=== PATIENT | female | born 1965 | race Caucasian/White ===

== ENCOUNTER 2017-07-28 14:37 | Emergency (ER) | payer OTHER ==
[~2017-07-28 14:37] MED LIST: ANTIBIOTIC O500 U/GM T; Motrin,Rufen800 MG PO; ULTRAM50 MG PO
[2017-07-28 15:06] LABS: BASO % 0.4 % (0.0-1.0); EOS # 0.1 10*3/uL (0.0-0.4); EOS % 1.8 % (1.0-4.0); HEMATOCRIT 35.3 % (37.0-47.0); HEMOGLOBIN 10.6 g/dl (12.0-16.0); LYMPH # 1.5 10*3/uL (1.3-4.4); LYMPH % 19.2 % (27.0-41.0); MEAN CELL VOLUME 79.1 fl (81.0-99.0); MEAN CORPUSCULAR HGB 23.8 pg (27.0-31.0); MEAN PLATELET VOLUME 9.3 fl (9.6-12.3); MONO # 0.3 10*3/uL (0.1-1.0); MONO % 4.3 % (3.0-9.0); NEUT # 5.7 10*3/uL (2.3-7.9); PLATELET COUNT AUTOMATED 293 10*3/uL (130-400); RED BLOOD COUNT 4.46 10*6/uL (4.10-5.10); RED CELL DISTRI WIDTH 15.1 % (0-14.5); WHITE BLOOD COUNT 7.7 10*3/uL (4.8-10.8)
[2017-07-28 15:21] LABS: BUN 10 mg/dl (7-24); CHLORIDE 101 mmol/L (98-107); CREATININE 0.83 mg/dL (0.55-1.02); SODIUM 137 mmol/L (136-145)
[2017-07-28] MEDS ORDERED: CEPHALEXIN500 M1 PO (15:39)
[2017-07-28] MEDS ORDERED: SEPTDS PO (15:39)
== END 2017-07-28 14:58 | disposition home or self-care (01) ==
LOC: ED 14:37
PROVIDERS: Physician Assistant
DX: L03.317 Cellulitis of buttock (principal); L02.31 Cutaneous abscess of buttock

== ENCOUNTER 2018-04-19 18:19 | Emergency (ER) | payer OTHER ==
[~2018-04-19] VITALS: Ht 172.7 cm; Wt 108.9 kg
[~2018-04-19 18:19] MED LIST changes: +CEPHALEXIN500 M1 PO; +SEPTDS PO
[2018-04-19] MEDS ORDERED: NAPROSYN500 MG PO (19:36)
[2018-04-19] MEDS ORDERED: CYCLOBENZAPRINE10 MG PO (19:36)
[2018-04-19] MEDS ORDERED: PREDNISONE50 MG PO (19:36)
== END 2018-04-19 19:38 | disposition home or self-care (01) ==
LOC: ED 18:19
DX: M54.5 Low back pain (principal); M62.830 Muscle spasm of back

== ENCOUNTER 2019-03-16 07:13 | Emergency (ER) | payer OTHER ==
[~2019-03-16] VITALS: Ht 172.7 cm; Wt 106.6 kg
[~2019-03-16 07:13] MED LIST changes: +CYCLOBENZAPRINE10 MG PO; +NAPROSYN500 MG PO; +PREDNISONE50 MG PO
[2019-03-16] MEDS ORDERED: CLINDAMYCIN HC300 MG PO (08:32)
== END 2019-03-16 08:36 | disposition home or self-care (01) ==
LOC: ED 07:13
DX: K08.89 Other specified disorders of teeth and supporting structures (principal); R53.1 Weakness; R25.1 Tremor, unspecified; R50.9 Fever, unspecified; Z79.899 Other long term (current) drug therapy; Z87.891 Personal history of nicotine dependence

== ENCOUNTER 2021-11-03 09:51 | Emergency (ER) | payer OTHER ==
[~2021-11-03] VITALS: Ht 172.7 cm; Wt 68.0 kg
[~2021-11-03 09:51] MED LIST changes: +CLINDAMYCIN HC300 MG PO
[2021-11-03 10:35] LABS: BASO % 0.4 % (0.0-1.0); EOS % 0.9 % (1.0-4.0); LYMPH # 1.4 10*3/uL (1.3-4.4); LYMPH % 28.8 % (27.0-41.0); MEAN CELL VOLUME 90.1 fl (81.0-99.0); MEAN CORPUSCULAR HGB CONC 33.3 g/dl (33.0-37.0); MEAN PLATELET VOLUME 9.2 fl (9.6-12.3); MONO # 0.3 10*3/uL (0.1-1.0); MONO % 5.8 % (3.0-9.0); NEUT % 64.1 % (47.0-73.0); PLATELET COUNT AUTOMATED 251 10*3/uL (130-400); RED BLOOD COUNT 4.77 10*6/uL (4.10-5.10); RED CELL DISTRI WIDTH 12.9 % (0-14.5); WHITE BLOOD COUNT 4.7 10*3/uL (4.8-10.8)
[2021-11-03 10:46] LABS: ACT PARTIAL THROMBO TIME 27.5 SECONDS (20.0-32.1)
[2021-11-03 10:55] LABS: ALKALINE PHOSPHATASE 102 U/L (45-117); BUN 14 mg/dl (7-24); CHLORIDE 106 mmol/L (98-107); CREATININE 0.68 mg/dL (0.55-1.02); LIPASE 119 U/L (73-393); POTASSIUM 3.9 mmol/L (3.5-5.1); SGOT/AST 27 IU/L (3-35); SGPT/ALT 43 U/L (12-78); SODIUM 138 mmol/L (136-145); TOTAL PROTEIN 7.6 gm/dL (6.4-8.2)
[2021-11-03] MEDS ORDERED: ZOFRAN4 MG PO (14:09)
[2021-11-03] MEDS ORDERED: MECLIZINE HCL25 M2 PO (14:09)
== END 2021-11-03 14:20 | disposition home or self-care (01) ==
LOC: ED 09:51
PROVIDERS: Emergency Medicine
DX: R42 Dizziness and giddiness (principal)

== ENCOUNTER → 2021-11-17 | Outpatient (CLI) | payer OTHER ==
[~2021-11-17] MED LIST changes: +MECLIZINE HCL25 M2 PO; +ZOFRAN4 MG PO
[2021-11-17 16:08] LABS: BILIRUBIN Negative (Negative); BLOOD Negative (Negative); CLARITY Clear (Clear); COLOR Yellow (Yellow); GLUCOSE Negative (Negative); KETONE Negative (Negative); LEUKO ESTERASE Trace (Negative); NITRITE Negative (Negative); PH 6.5 (4.5-8.0); SPECIFIC GRAVITY 1.025 (1.001-1.030); UROBILINOGEN 0.2 E.U./dl (0.0-1.0)
[2021-11-17 16:08] LABS: BASO % 0.5 % (0.0-1.0); EOS % 0.5 % (1.0-4.0); HEMATOCRIT 45.4 % (37.0-47.0); LYMPH # 1.9 10*3/uL (1.3-4.4); LYMPH % 25.2 % (27.0-41.0); MEAN CELL VOLUME 91.7 fl (81.0-99.0); MEAN CORPUSCULAR HGB 30.5 pg (27.0-31.0); MEAN CORPUSCULAR HGB CONC 33.3 g/dl (33.0-37.0); MEAN PLATELET VOLUME 9.9 fl (9.6-12.3); MONO # 0.4 10*3/uL (0.1-1.0); MONO % 5.1 % (3.0-9.0); NEUT # 5.1 10*3/uL (2.3-7.9); NEUT % 68.4 % (47.0-73.0); PLATELET COUNT AUTOMATED 301 10*3/uL (130-400); RED BLOOD COUNT 4.95 10*6/uL (4.10-5.10); RED CELL DISTRI WIDTH 12.9 % (0-14.5); RETICULOCYTE % 1.57 % (0.50-2.50); WHITE BLOOD COUNT 7.5 10*3/uL (4.8-10.8)
[2021-11-17 16:13] LABS: BACTERIA 1+; WBC 21-30 wbc/hpf (0-5)
[2021-11-17 16:14] LABS: RBC 0-2 rbc/hpf (0-2)
[2021-11-17 16:27] LABS: BUN 13 mg/dl (7-24); CHLORIDE 101 mmol/L (98-107); CHOLESTEROL 212 mg/dL (<200); CREATININE 0.64 mg/dL (0.55-1.02); GAMMA GLUTAMYL TRANSPEPTIDASE 19 U/L (5-55); IRON 48 ug/dL (50-170); LDL CHOLESTEROL 106 mg/dL (9-159); POTASSIUM 4.2 mmol/L (3.5-5.1); SGOT/AST 18 IU/L (3-35); SGPT/ALT 36 U/L (12-78); SODIUM 135 mmol/L (136-145); T3 UPTAKE 36 % (31-39); THYROXINE (T4) TOTAL 11.1 ug/dl (4.8-13.9); TOTAL IRON BINDING CAPACITY 390 ug/dl (250-450); TOTAL PROTEIN 7.7 gm/dL (6.4-8.2); TRIGLYCERIDES 179 mg/dl (<150)
[2021-11-17 16:34] LABS: ALKALINE PHOSPHATASE 106 U/L (45-117); URIC ACID 4.2 mg/dL (2.6-6.0)
[2021-11-17 16:45] LABS: FERRITIN 91.9 ng/mL (10.0-291.0); VITAMIN D, 25-HYDROXY 25.3 ng/mL (30-100)
[2021-11-18 08:08] LABS: RHEUMATOID FACTOR <10.0 IU/mL (<14.0)
[2021-11-18 13:07] LABS: ANTI-DSDNA ANTIBODIES 1 IU/mL (0-9)
== END | disposition home or self-care (01) ==
LOC: LAB 15:38
PROVIDERS: ATTEND Family Medicine
DX: E55.9 Vitamin D deficiency, unspecified (principal); R79.89 Other specified abnormal findings of blood chemistry; R53.83 Other fatigue; E78.5 Hyperlipidemia, unspecified; R74.8 Abnormal levels of other serum enzymes

== ENCOUNTER 2022-10-26 15:15 | Emergency (ER) | payer OTHER ==
[~2022-10-26] VITALS: Ht 172.7 cm; Wt 95.3 kg
== END 2022-10-26 17:37 | disposition left against medical advice (07) ==
LOC: ED 15:15
DX: M25.522 Pain in left elbow (principal); Z53.21 Procedure and treatment not carried out due to patient leaving prior to being seen by health care provider

== ENCOUNTER 2022-10-27 10:31 | Emergency (ER) | payer OTHER ==
[~2022-10-27] VITALS: Ht 172.7 cm; Wt 95.3 kg
== END 2022-10-27 12:32 | disposition home or self-care (01) ==
LOC: ED 10:31
DX: M77.8 Other enthesopathies, not elsewhere classified (principal); Z79.899 Other long term (current) drug therapy

== ENCOUNTER 2022-11-27 14:14 | Emergency (ER) | payer OTHER ==
[~2022-11-27] VITALS: Ht 172.7 cm; Wt 99.8 kg
[2022-11-27] MEDS ORDERED: AMOX-CLAV 875-1 EACH PO (14:50)
== END 2022-11-27 14:52 | disposition home or self-care (01) ==
LOC: ED 14:14
DX: H66.92 Otitis media, unspecified, left ear (principal); F41.9 Anxiety disorder, unspecified; Z98.51 Tubal ligation status